=== PATIENT | female | born 1970 | race African-American/Black ===

== ENCOUNTER 2017-04-25 19:11 | Emergency (ER) | payer BC ==
[2017-04-25 19:21] VITALS: BMI 21.1
--- NOTE | 2017-04-25 21:24 | PDOC ---
History of Present Illness - General Chief Complaint: Weakness Stated Complaint: WEAKNESS Time Seen by Provider: 04/25/17 21:20 History Source: Patient - History of Present Illness Initial Comments: 04/25/17 Over the last 3 months 3 episodes of dizziness where patient felt to the ground , last episode was this afternoon prior to arrival. Denies chest pain, diaphoresis, nausea vomiting, urinary symptoms, abdominal pain.. Patient denies being and, denies headache unilateral weakness. Past History - Past Medical History Allergies/Adverse Reactions: Allergies Allergy/AdvReac Type Severity Reaction Status Date / Time No Known Allergies Allergy Verified 04/25/17 19:14 Home Medications: Ambulatory Orders NK [No Known Home Medication] 04/25/17 Anemia: Yes COPD: No Thyroid Disease: No - Suicide/Smoking/Psychosocial Hx Smoking History: Never smoked Hx Alcohol Use: No Substance Use Type: None Review of Systems - Review of Systems Able to Perform ROS?: Yes Is the patient limited Irish proficient: No Respiratory: No: Symptoms reported, See HPI, Cough, Orthopnea, Shortness of Breath, SOB with Exertion, SOB at Rest, Stridor, Wheezing, Productive cough, Hemoptysis, Other Cardiac (ROS): No: Symptoms Reported, See HPI, Chest Pain, Edema, Irregular Heart Rate, Lightheadedness, Palpitations, Syncope, Chest Tightness, Other Neurological: Yes: Dizziness. No: Symptoms reported, See HPI, Headache, Numbness, Paresthesia, Pre-Existing Deficit, Seizure, Tingling, Tremors, Weakness, Unsteady Gait, Ataxia, Other *Physical Exam - Vital Signs Last Vital Signs Temp Pulse Resp BP Pulse Ox 97.8 F 84 20 116/84 99 04/25/17 19:14 04/25/17 19:14 04/25/17 19:14 04/25/17 19:14 04/25/17 19:14 - Physical Exam General Appearance: Yes: Appropriately Dressed HEENT: negative: EOMI, MELVA, Normal ENT Inspection, Normal Voice, Symmetrical, TMs Normal, Pharynx Normal, Pale Conjunctivae, Photophobia, Scleral Icterus (R) , Scleral Icterus (L), Muffled/Hoarse voice, Pharyngeal Erythema, Tonsillar Exudate, Tonsillar Erythema, Nasal Congestion, Rhinorrhea, Sinus Tenderness, Orbits, Hearing Decreased, Hearing Grossly Normal, TM Bulging, TM Dull, TM Erythema, Lesions, Mcdaniel, Excessive drooling, Thrush, Other Respiratory/Chest: positive: Lungs Clear, Normal Breath Sounds Cardiovascular: positive: Regular Rhythm, Regular Rate. negative: S1, S2, Edema , JVD, Murmur, Bradycardia, Tachycardia, Diastolic Murmur, Systolic Murmur, Gallop/S3, Gallop/S4, Irregularly Irregular, Irregular, Other Gastrointestinal/Abdominal: positive: Normal Bowel Sounds, Soft Musculoskeletal: positive: Normal Inspection Extremity: positive: Normal Capillary Refill, Normal Inspection, Normal Range of Motion ED Treatment Course - LABORATORY CBC & Chemistry Diagram: 04/25/17 22:03 04/25/17 21:59 - RADIOLOGY Chest X-Ray Result: No Infiltrates Medical Decision Making - Medical Decision Making 04/26/17 02:21 A: orthostatic hypotension; p: CBC CMP UA Urine CT had Chest x-ray EKG: Normal sinus 70 *DC/Admit/Observation/Transfer Diagnosis at time of Disposition: Orthostatic lightheadedness - Discharge Dispostion Disposition: HOME - Referrals Referrals: Tarik Quintero MD [Primary Care Provider] - Call tomorrow - Patient Instructions Printed Discharge Instructions: DI for Orthostatic Hypotension Additional Instructions: drink plenty fluids. follow up with your doctor as soon as possible. return to the ED if symptoms worsen.
--- NOTE | 2017-04-25 21:44 | PDOC ---
*Physical Exam - Vital Signs Last Vital Signs Temp Pulse Resp BP Pulse Ox 97.8 F 84 20 116/84 99 04/25/17 19:14 04/25/17 19:14 04/25/17 19:14 04/25/17 19:14 04/25/17 19:14 ED Treatment Course - LABORATORY CBC & Chemistry Diagram: 04/25/17 22:03 04/25/17 21:59 Medical Decision Making - Medical Decision Making 04/25/17 21:43 agree with care from TERESA Hill *DC/Admit/Observation/Transfer Diagnosis at time of Disposition: Orthostatic lightheadedness - Discharge Dispostion Disposition: HOME - Referrals Referrals: Tarik Quintero MD [Primary Care Provider] - Call tomorrow - Patient Instructions Printed Discharge Instructions: DI for Orthostatic Hypotension Additional Instructions: drink plenty fluids. follow up with your doctor as soon as possible. return to the ED if symptoms worsen.
[2017-04-25 21:45] LABS: URINE APPEARANCE SLCLOUDY; URINE BILIRUBIN NEGATIVE (NEGATIVE); URINE BLOOD NEGATIVE (NEGATIVE); URINE COLOR LTYELLOW; URINE GLUCOSE (UA) NEGATIVE (NEGATIVE); URINE KETONE NEGATIVE (NEGATIVE); URINE NITRITE NEGATIVE (NEGATIVE); URINE PROTEIN NEGATIVE (NEGATIVE)
[2017-04-25 22:23] LABS: BASOPHIL 0.7 % (0-2.0); EOSINOPHIL 0.4 % (0-4.5); MCH 28.6 pg (25.7-33.7); MCHC 33.4 g/dl (32.0-36.0); MEAN CELL VOLUME 85.6 fl (80-96); MEAN PLT VOLUME 8.4 fl (7.5-11.1); NEUTROPHILS 52.5 % (42.8-82.8); PLATELET COUNT 225 K/MM3 (134-434); RDW 14.8 % (11.6-15.6); WHITE BLOOD COUNT 4.7 K/mm3 (4.0-10.0)
[2017-04-25 22:35] LABS: INR 1.08 (0.82-1.09); PROTHROMBIN TIME (PATIENT) 12.2 SEC (9.98-11.88)
[2017-04-25] MEDS ORDERED: SODIUM CHLORIDE 1,000 ML IV STA (22:39)
[2017-04-25 22:44] LABS: ALBUMIN 3.7 g/dl (3.4-5.0); ANION GAP 8 (8-16); BILIRUBIN,TOTAL 0.4 mg/dL (0.2-1.0); CALCIUM 8.7 mg/dL (8.5-10.1); CO2 27 mmol/L (21-32); CREATININE 0.5 mg/dL (0.55-1.02); GLUCOSE,RANDOM 89 mg/dL (74-106); MAGNESIUM 1.9 mg/dL (1.8-2.4); SGOT/AST 14 U/L (15-37); TOT PROT 7.1 g/dl (6.4-8.2)
[2017-04-25 22:47] LABS: ALK PHOS 57 U/L (45-117); CPK 79 IU/L (26-192); SGPT/ALT 16 U/L (12-78); TROPONIN I < 0.02 ng/ml (0.00-0.05)
[2017-04-25 23:30] LABS: URINE LEUK ESTERASE Negative (NEGATIVE)
[2017-04-26 03:32] VITALS: BP 116/84; PULSE 83; TEMP 98
--- NOTE | 2017-04-26 12:40 | EKG ---
Test Reason : Blood Pressure : / mmHG Vent. Rate : 070 BPM Atrial Rate : 070 BPM P-R Int : 148 ms QRS Dur : 088 ms QT Int : 364 ms P-R-T Axes : 064 019 045 degrees QTc Int : 393 ms NORMAL SINUS RHYTHM NORMAL ECG WHEN COMPARED WITH ECG OF 16-NOV-2014 13:25, NO SIGNIFICANT CHANGE WAS FOUND Confirmed by BLAZE COLE MD ([id number]) on 04/26/2017 12:40:14 PM Referred By: Confirmed By:BLAZE COLE MD
== END 2017-04-26 03:33 | disposition home or self-care (01) ==
LOC: JER 19:11
PROC: 3E0337Z Introduction of Electrolytic and Water Balance Substance into Peripheral Vein, Percutaneous Approach (ICD-10-PCS; principal; 2017-04-25)
DX: I95.1 Orthostatic hypotension (principal); W18.39XA Other fall on same level, initial encounter; Y93.89 Activity, other specified; Y92.89 Other specified places as the place of occurrence of the external cause
CPT/HCPCS: 36415; 70450-TC; 71020-TC; 80053; 81003; 82550; 83735; 84484; 84703; 85025; 85610; 93005; 93010; 99284-25

== ENCOUNTER 2021-12-14 04:10 | Day surgery (SDC) | payer BC ==
[2021-12-09 16:09] VITALS: BMI 22.1
[2021-12-14] MEDS ORDERED: ONDANSETRON 4 MG/2 ML VIAL IVPUSH PRN (10:01)
[2021-12-14] MEDS ORDERED: oxyCODONE HCL 5 MG TABLET PO PRN (10:01)
[2021-12-14] MEDS ORDERED: PROPOFOL 20 ML ONE (10:10)
[2021-12-14] MEDS ORDERED: MIDAZOLAM HCL 2 MG/2 ML SINGLE DOSE VIAL ONE (10:10)
[2021-12-14] MEDS ORDERED: DEXAMETHASONE SOD PHOSPHATE 4 MG/1 ML VIAL ONE (10:10)
[2021-12-14] MEDS ORDERED: LIDOCAINE HCL/PF 2% SDV 5ML VIAL ONE (10:10)
[2021-12-14] MEDS ORDERED: ONDANSETRON 4 MG/2 ML VIAL ONE (10:10)
[2021-12-14] MEDS ORDERED: SCOPOLAMINE HYDROBROMIDE 1 PATCH PATCH.TD72 ONE (10:15)
[2021-12-14] MEDS ORDERED: LACTATED RINGERS SOLUTION 1,000 ML IV SCH (10:15)
[2021-12-14 14:02] VITALS: BP 106/64; PULSE 62; TEMP 98.2
== END 2021-12-14 13:39 | disposition home or self-care (01) ==
LOC: JASU-SURG 04:10
PROVIDERS: ATTEND Obstetrics & Gynecology
PROC: 0UDB7ZZ Extraction of Endometrium, Via Natural or Artificial Opening (ICD-10-PCS; 2021-12-14)
PROC: 0UJD8ZZ Inspection of Uterus and Cervix, Via Natural or Artificial Opening Endoscopic (ICD-10-PCS; 2021-12-14)
PROC: 0UB98ZZ Excision of Uterus, Via Natural or Artificial Opening Endoscopic (ICD-10-PCS; principal; 2021-12-14 10:00)
DX: N93.9 Abnormal uterine and vaginal bleeding, unspecified (principal); D25.0 Submucous leiomyoma of uterus
CPT/HCPCS: 81025; 88305-TC; 94760

== ENCOUNTER 2023-03-08 05:01 | Day surgery (SDC) | payer BC ==
[2023-03-07 10:29] VITALS: BMI 21.4
[2023-03-08] MEDS ORDERED: oxyCODONE HCL 5 MG TABLET PO PRN ×2 (11:36)
[2023-03-08] MEDS ORDERED: ONDANSETRON 4 MG/2 ML VIAL IVPUSH PRN (11:36)
[2023-03-08] MEDS ORDERED: ACETAMINOPHEN 1000 MG/100 ML BAG IVPB PRN (11:37)
[2023-03-08] MEDS ORDERED: LACTATED RINGERS SOLUTION 1,000 ML IV SCH (11:45)
[2023-03-08] MEDS ORDERED: IBUPROFEN 400 MG TABLET (FP) PO PRN (11:48)
[2023-03-08] MEDS ORDERED: ACETAMINOPHEN 325 MG TABLET (FP) PO PRN (11:48)
[2023-03-08] MEDS ORDERED: MIDAZOLAM HCL 2 MG/2 ML SINGLE DOSE VIAL ONE (12:24)
[2023-03-08] MEDS ORDERED: DEXAMETHASONE SOD PHOSPHATE 4 MG/1 ML VIAL ONE ×2 (12:24→12:58)
[2023-03-08] MEDS ORDERED: LIDOCAINE HCL/PF 2% SDV 5ML VIAL ONE (12:24)
[2023-03-08] MEDS ORDERED: PROPOFOL 40 ML ONE (12:24)
[2023-03-08] MEDS ORDERED: KETOROLAC TROMETHAMINE 30 MG/1 ML VIAL ONE (12:25)
[2023-03-08] MEDS ORDERED: SEVOFLURANE 250 ML BTL ONE (12:25)
[2023-03-08] MEDS ORDERED: METOCLOPRAMIDE HCL INJECTION 10 MG/2 ML VIAL ONE (14:47)
[2023-03-08] MEDS ORDERED: METOCLOPRAMIDE HCL INJECTION 10 MG/2 ML VIAL IVPUSH ONE (14:49)
[2023-03-08] MEDS ORDERED: ACETAMINOPHEN INJECTION 100 ML IVPB ONE (15:20)
[2023-03-08 18:47] VITALS: TEMP 97.3
[2023-03-08 18:49] VITALS: BP 112/74; PULSE 68; RESP 20
== END 2023-03-08 18:11 | disposition home or self-care (01) ==
LOC: JASU-SURG 05:01
PROVIDERS: ATTEND Obstetrics & Gynecology
PROC: 0U5B8ZZ Destruction of Endometrium, Via Natural or Artificial Opening Endoscopic (ICD-10-PCS; principal; 2023-03-08 12:00)
DX: N92.0 Excessive and frequent menstruation with regular cycle (principal)
CPT/HCPCS: 81025; 86850; 86900; 86901; 94760

== ENCOUNTER 2023-06-27 08:43 | Emergency (ER) | payer BC ==
[2023-06-27 08:50] VITALS: BP 155/70; PULSE 91; RESP 20; TEMP 98.9; BMI 21.6
== END 2023-06-27 12:27 | disposition home or self-care (01) ==
LOC: JER 08:43 → JERFT 08:43
DX: R05.9 Cough, unspecified (principal); U07.1 COVID-19
CPT/HCPCS: 0241U-QW; 71046-TC-FY; 99284-25

== ENCOUNTER 2024-12-19 08:00 | Day surgery (SDC) | payer BC ==
[2024-12-17 09:27] VITALS: BMI 23.9
[2024-12-19 12:10] VITALS: TEMP 98.1
[2024-12-19 12:41] VITALS: RESP 14
[2024-12-19 12:46] VITALS: BP 113/68; PULSE 68
== END 2024-12-19 12:50 | disposition home or self-care (01) ==
LOC: JASU-ENDO 08:00
PROVIDERS: ATTEND Internal Medicine Gastroenterology
PROC: 0DJD8ZZ Inspection of Lower Intestinal Tract, Via Natural or Artificial Opening Endoscopic (ICD-10-PCS; principal; 2024-12-19 11:00)
DX: Z12.11 Encounter for screening for malignant neoplasm of colon (principal); K62.5 Hemorrhage of anus and rectum